=== PATIENT | male | born 1990 | race Hispanic/Latino ===

== ENCOUNTER 2017-09-22 07:50 | Emergency (ER) | payer OTHER ==
[~2017-09-22] VITALS: Ht 177.8 cm; Wt 68.0 kg
[~2017-09-22 07:50] MED LIST: IBUPROFEN400 MG PO
[2017-09-22] MEDS ORDERED: ZOFRAN ODT4 MG PO (09:55)
== END 2017-09-22 10:33 | disposition home or self-care (01) ==
LOC: ED 07:50
DX: K91.0 Vomiting following gastrointestinal surgery (principal)
CPT/HCPCS: 80053; 81001; 83690; 85025; 96374; 99283; J2405; J7030